=== PATIENT | male | born 1940 | race Caucasian/White ===

== ENCOUNTER 2017-07-07 09:03 | Outpatient (CLI) | payer MEDICARE, BC ==
[~2017-07-07 09:03] MED LIST: ASPI-495 PO; DONE5TAB34 PO; GLIP5TAB13 PO; HYDROCODONE PO; LORA1TAB PO; OXYC20TA42 PO; PREG300C PO; TAMS0.4C34 PO; TOPI25CA PO; WARF1TAB86 PO
== END 2017-07-07 23:59 | disposition home or self-care (01) ==
LOC: US 09:03
PROVIDERS: ATTEND Internal Medicine Interventional Cardiology
DX: I71.4 Abdominal aortic aneurysm, without rupture (principal)
CPT/HCPCS: 76770-TC

== ENCOUNTER 2017-10-25 04:14 | Inpatient (IN) | payer MEDICARE, BC ==
[~2017-10-25] VITALS: Ht 182.9 cm; Wt 103.4 kg
--- NOTE | 2017-10-25 04:30 | NUR ---
PT BIBRA FROM HOME FOR MECHANICAL GLF GETTING OUT OF BED, WITNESSED FALL AND STATES PT HIT HIS HEAD ON THE NIGHT STAND. PT AOX3 RR EVEN AND UNLABORED. NO SOB NOTED. HOWEVER PT 02 RA 81%, PLACED ON NC 4LMP WITH 02 SAT 92%. PT NOTED WITH LOW BP. DR MCKEON MADE AWARE. PT PLACED ON MONITOR AND GOWNED. DR. MCKEON AT BEDSIDE.
--- NOTE | 2017-10-25 04:31 | NUR ---
Rah shaw in [facility] - 10/25/17 at 0642 by CHRIS PER RA PLACED HARD CERVICAL COLLAR.
--- NOTE | 2017-10-25 04:31 | NUR ---
PT WITH PERSONAL HARD CERVICAL COLLAR D/T RECENT NECK SURGERY
--- NOTE | 2017-10-25 04:53 | NUR ---
RADIOLOGY AT BEDSIDE FOR CXR
[2017-10-25] MEDS ORDERED: IV NS 0.9% 1,000 ML BAG IV ONE (05:00)
--- NOTE | 2017-10-25 05:00 | NUR ---
PT TO CT. ACCOMPANIED BY MONICA BAUMAN
[2017-10-25 05:06] LABS: BASOPHILS % (AUTO) 0.2 % (0.0-2.0); EOSINOPHILS % (AUTO) 0.1 % (0.0-6.0); HEMATOCRIT 40 % (39-51); HEMOGLOBIN 13.4 g/dL (13.5-17.5); LYMPHOCYTES # (AUTO) 0.3 /CMM (0.8-4.8); LYMPHOCYTES % (AUTO) 2.7 % (20.0-44.0); MEAN CORPUSCULAR HEMOGLOBIN 32 PG (26.0-33.0); MEAN CORPUSCULAR HGB CONC 33 g/dl (31.0-36.0); MEAN CORPUSCULAR VOLUME 97 fL (80-96); MONOCYTES % (AUTO) 7.6 % (2.0-12.0); NEUTROPHILS # (AUTO) 11.3 /CMM (1.8-8.9); NEUTROPHILS % (AUTO) 89.4 % (43.0-81.0); PLATELET COUNT (AUTO) 139 /CMM (150-450); RDW COEFFICIENT OF VARIATION 15.9 (11.5-15.0); RED BLOOD CELL COUNT(AUTO) 4.17 MIL/uL (4.5-6.0); WHITE BLOOD COUNT (AUTO) 12.6 K/uL (4.3-11.0)
[2017-10-25 05:08] LABS: INR 1.6 (0.87-1.13)
[2017-10-25 05:12] LABS: ALANINE AMINOTRANSFERASE 30 U/L (12-78); ALBUMIN 3.5 g/dL (3.4-5.0); ALKALINE PHOSPHATASE 135 U/L (46-116); ASPARTATE AMINOTRANSFERASE 17 U/L (15-37); BILIRUBIN,DIRECT 0.1 mg/dL (0.0-0.2); BILIRUBIN,TOTAL 0.3 mg/dL (0.2-1.0); CALCIUM, SERUM 9.3 mg/dL (8.5-10.1); CARBON DIOXIDE 26 mmol/L (21-32); CHLORIDE 104 mmol/L (98-107); CREATININE 1.6 mg/dL (0.6-1.3); GLUCOSE 180 mg/dL (74-106); POTASSIUM 4.8 mmol/L (3.5-5.1); SODIUM SERUM 139 mmol/L (136-145); TOTAL PROTEIN, SERUM 6.8 g/dL (6.4-8.2); UREA NITROGEN, BLOOD 45 mg/dL (7-18)
[2017-10-25 05:20] LABS: THYROID STIMULATING HORMONE 0.253 uIU/mL (0.358-3.74)
--- NOTE | 2017-10-25 05:23 | NUR ---
PT RETURNED FROM CT.
[2017-10-25 05:35] LABS: TROPONIN I 0.042 ng/mL (0.00-0.056)
--- NOTE | 2017-10-25 06:27 | NUR ---
DR. MCKEON AT BEDSIDE SPEAKING TO PT/ REGARDING POC AND RESULTS.
[2017-10-25] MEDS ORDERED: FUROSEMIDE 20 MG/2 ML VIAL IV ONE (07:00)
[2017-10-25] MEDS ORDERED: NITROGLYCERIN PACKET 1 GM PACKET TD ONE (07:00)
--- NOTE | 2017-10-25 07:01 | NUR ---
REPORT GIVEN TO MONICA ADKINS FOR JONNY.
[2017-10-25] MEDS ORDERED: FUROSEMIDE 20 MG/2 ML VIAL ONE (07:03)
[2017-10-25] MEDS ORDERED: NITROGLYCERIN PACKET 1 GM PACKET ONE (07:03)
--- NOTE | 2017-10-25 07:07 | NUR ---
PER DR. XIONG TO HOLD NITRO PATCH D/T BP 95/60
[2017-10-25] MEDS ORDERED: ROPI0.5T GT (07:25)
[2017-10-25] MEDS ORDERED: CARV3.122 PO (07:25)
[2017-10-25] MEDS ORDERED: OXYB5TAB11 PO (07:25)
[2017-10-25] MEDS ORDERED: TRAM50TA2 PO (07:25)
[2017-10-25] MEDS ORDERED: CYCL30DR EACHEYE (07:25)
[2017-10-25] MEDS ORDERED: MEMA5TAB PO (07:25)
[2017-10-25] MEDS ORDERED: CITA20TA16 PO (07:25)
[2017-10-25] MEDS ORDERED: NORT25CA PO (07:25)
[2017-10-25] MEDS ORDERED: HYDR-548 PO (07:25)
[2017-10-25] MEDS ORDERED: CELE200C PO (07:25)
[2017-10-25] MEDS ORDERED: LOSA50TA21 PO (07:25)
--- NOTE | 2017-10-25 08:43 | NUR ---
report given to reva wiggins for shahnaz
[2017-10-25 09:00] VITALS: BP 91/55
--- NOTE | 2017-10-25 09:00 | NUR ---
MS RN NOTES ADMITTED PATIENT FROM ER VIA GURNEY ACCOMPANIED BY . REPORT GIVEN BY LUCILLE. NO ACUTE DISTRESS NOTED. BREATHING UNLABORED. DENIED ANY PAIN AT THIS TIME. ALERT ORIENTED X4. IV ACCESS PATENT AND INTACT. ORIENTED TO THE ROOM. SAFETY MEASURES IN PLACE. CALL LIGHT WITHIN REACH. WILL CONTINUE TO MONITOR ACCORDINGLY.
[2017-10-25] MEDS ORDERED: ONDANSETRON HCL/PF 4 MG/2 ML VIAL IV PRN (12:30)
[2017-10-25] MEDS ORDERED: DEXTROSE 50%-WATER 50 ML DISP.SYRIN IV PRN (12:30)
--- NOTE | 2017-10-25 12:45 | NUR ---
RN NOTES SEEN AND EVALUATED BY DR NIKITA RICARDO WITH NEW ORDERS MADE. NOTED AND CARRIED OUT.
[2017-10-25 13:00] VITALS: BP 95/48
[2017-10-25 16:00] VITALS: BP 133/70
[2017-10-25] MEDS ORDERED: CARVEDILOL 3.125 MG TABLET PO SCH (17:00)
[2017-10-25] MEDS ORDERED: Medication Not On Formulary EA (Cyclosporine (Restasis) 1 DROP) EACHEYE SCH (17:00)
[2017-10-25] MEDS: MEMANTINE HCL 5 MG TABLET PO SCH (17:43)
[2017-10-25] MEDS: ropiniROLE 0.5 MG TABLET GT SCH (17:43)
[2017-10-25] MEDS: BLOOD SUGAR DIAGNOSTIC 1 EACH STRIP IN SCH ×2 (17:43→21:50)
--- NOTE | 2017-10-25 18:20 | NUR ---
RN NOTES CALLED PHARMACIST FOLLOW UP PAMELOR , NOT AVAILABLE AT THE FLOOR YET.
[2017-10-25] MEDS: WARFARIN SODIUM 1 MG TABLET PO SCH (18:32)
[2017-10-25] MEDS: HYDROCODONE/APAP 10/325MG 1 EA TABLET PO PRN (18:34)
--- NOTE | 2017-10-25 18:40 | NUR ---
RN NOTES CALLED PHARMACIST AND FOLLOWED UP PAMELOR, MEDICATION NOT AVAILABLE ON THE FLOOR YET.
[2017-10-25] MEDS: NORTRIPTYLINE HCL 25 MG CAPSULE PO SCH (18:59)
--- NOTE | 2017-10-25 19:00 | NUR ---
MS RN NOTES PATIENT IN BED ,ALERT ORIENTED X4. NO ACUTE DISTRESS NOTED. BREATHING UNLABORED. IV ACCESS PATENT AND INTACT.NEEDS ATTENDED AND ANTICIPATED. DUE MEDICATIONS GIVEN, NO ASE NOTED. FOLLOWED UP MEDICATION PAMELOR STILL NOT AVAILABLE AT THIS TIME SPOKE WITH PHARMACIST RAMIREZ. NEEDS ATTENDED AND ANTICIPATED. SAFETY MEASURES IN PLACE. CALL LIGHT WITHIN REACH. ENDORSED TO NIGHT NURSE FOR CONTINUITY OF CARE.
--- NOTE | 2017-10-25 19:35 | NUR ---
MS RN INITIAL NOTE PT IS IN BED AWAKE AND ALERT, ABLE TO MAKE NEEDS KNOWN. NO SIGNS OF SOB OR DISTRESS, BREATHING EVENLY AND UNLABORED. DENIES PAIN AT THIS TIME. URINE NEEDED, PT AWARE. BED IS IN LOW AND LOCKED POSITION, CALL LIGHT WITHIN REACH. WILL CONTINUE TO MONITOR PT
[2017-10-25 20:00] VITALS: BP 138/74
--- NOTE | 2017-10-25 21:41 | NUR ---
RN NOTE REPORT GIVEN TO NOAM FOR JONNY
--- NOTE | 2017-10-25 21:41 | NUR ---
RECEIVED REPORT FROM AMBROCIO PT IS IN BED AWAKE AND ALERTX 4 ,NO SIGNS OF SOB OR DISTRESS, BREATHING EVENLY AND UNLABORED. PT STATED HE HAD PAIN IN HIS NECK 3/10, LAST PAIN MED WAS GIVEN 3HR AGO.WILL REASSESS IN AN HOUR. BS 123, NO COVERAGE NEEDED . BED IS IN LOW AND LOCKED POSITION, CALL LIGHT WITHIN REACH. WILL CONTINUE TO MONITOR .
[2017-10-25 22:26] LABS: APPEARANCE,URINE CLEAR (CLEAR); BILIRUBIN,URINE NEGATIVE (NEGATIVE); BLOOD, URINE NEGATIVE Ery/uL (NEGATIVE); COLOR,URINE YELLOW (YELLOW); KETONES,URINE NEGATIVE (NEGATIVE); LEUKOCYTE ESTERASE ,URINE NEGATIVE (NEGATIVE); NITRITE, URINE NEGATIVE (NEGATIVE); PROTEIN,URINE NEGATIVE (NEGATIVE); UGLUCOSE NEGATIVE (NEGATIVE)
[2017-10-25 22:41] LABS: BACTERIA,URINE None seen /HPF (None Seen); MUCUS,URINE Rare /LPF (None Seen); RBC,URINE 0-2 /HPF (0-2); SQUAMOUS EPITHELIAL CELL,UR 0-2 /HPF (None Seen); WBC,URINE 0-2 /HPF (0-3)
[2017-10-26] VITALS: BP 133/73
--- NOTE | 2017-10-26 00:29 | NUR ---
PT REFUSED VS AT 0400 AND ASKED NOT TO BEDER HIM AT THAT TIME Addendum: 10/26/17 at 0032 by NOAM MCCAULEY RN IVIS
[2017-10-26 00:30] VITALS: BP 133/73
[2017-10-26 06:05] VITALS: BP 147/86
--- NOTE | 2017-10-26 07:12 | NUR ---
ENGINEERING PRODUCTION WORKER CLOSING NOTES PT IS IN BED AWAKE AND ALERT X 4 ,NO SIGNS OF SOB OR DISTRESS, BREATHING EVENLY AND UNLABORED. NO PAIN AT THIS TIME. BS 119, NO COVERAGE NEEDED, SR WITH HR 78 . BED IS IN LOW AND LOCKED POSITION, CALL LIGHT WITHIN REACH. WILL ENDORSE TO DAY SHIFT FOR JONNY. .
--- NOTE | 2017-10-26 07:30 | NUR ---
VALIDATION CONSULTANT NOTES RECEIVED PATIENT IN STABLE CONDITION. IN NO APPARENT DISTRESS. BEDSIDE RAILS ARE UPX2. BED IS LOCKED AND LOWERED. CALL LIGHT IS WITHIN REACH. IV LINE IS INTACT AND PATENT. WILL CONTINUE TO MONITOR.
[2017-10-26] MEDS: BLOOD SUGAR DIAGNOSTIC 1 EACH STRIP IN SCH ×4 (07:37→22:07)
[2017-10-26 08:00] VITALS: BP 121/74
[2017-10-26] MEDS: CITALOPRAM HYDROBROMIDE 20 MG TABLET PO SCH (08:49)
[2017-10-26] MEDS: FUROSEMIDE 40 MG/4 ML VIAL IV SCH ×3 (08:49→16:41)
[2017-10-26] MEDS: DONEPEZIL 5 MG TABLET PO SCH (08:49)
[2017-10-26] MEDS: MEMANTINE HCL 5 MG TABLET PO SCH ×2 (08:49→16:41)
[2017-10-26] MEDS ORDERED: LOSARTAN POTASSIUM 50 MG TABLET PO SCH (09:00)
--- NOTE | 2017-10-26 10:42 | NUR ---
Dr. Trudy Brumfield requested social media strategist consult for this 77 year old Male who was admitted for hypertensive heart disease with heart failure and acute kidney failure, unspecified. Per the patient, he was trying to get out of bed this AM and required help from his who noticed that his hands were trembling and that he was confused. Patient is alert and oriented to person, place, time, and situation. He was in a good mood and was pleasant during the interview. He states that he lives at home with his and has been to her for 52 years. He receives SSI ($1300/month). Patient noted that his wants information pertaining to [employer] Directive/DPOA/and POLST. SW provided this paperwork to him. He stated that he would rather take the POLST form to his own primary care doctor rather than have a doctor fill it out at the hospital. SW called the patient's Marcia Bunch ([phone]) and appreciated the SW providing this paperwork to the patient. She notes there are no other needs at this time. HANNY followed up with the patient's nurse Lavell ANDERSON and informed him that the paperwork was provided to the patient.
--- NOTE | 2017-10-26 11:59 | NUR ---
SCANNER NOT WORKING. CHECKED PATIENTS BLOOD SUGAR. BLOOD SUGAR WAS 122.
[2017-10-26 16:00] VITALS: BP 151/88
[2017-10-26] MEDS: WARFARIN SODIUM 1 MG TABLET PO SCH (16:54)
--- NOTE | 2017-10-26 17:00 | NUR ---
OK TO ADMINISTER COUMADIN PER 10/25/17 INR VALUE
--- NOTE | 2017-10-26 17:01 | NUR ---
PATIENTS BLOOD SUGAR 153. PATIENT REFUSED INSULIN SLIDING SCALE. STATES THAT HE DOESN'T TAKE INSULIN AT HOME.
[2017-10-26] MEDS: NORTRIPTYLINE HCL 25 MG CAPSULE PO SCH (17:36)
[2017-10-26] MEDS: ropiniROLE 0.5 MG TABLET GT SCH (17:36)
[2017-10-26] MEDS: HYDROCODONE/APAP 10/325MG 1 EA TABLET PO PRN ×2 (17:41→22:41)
--- NOTE | 2017-10-26 18:30 | NUR ---
DATA ANALYST CLOSING NOTES PATIENT IS IN STABLE CONDITION. IN NO APPARENT DISTRESS. BEDSIDE RAILS ARE UPX2. BED IS LOCKED AND LOWERED. CALL LIGHT IS WITHIN REACH. IV LINE IS INTACT AND PATENT. WILL ENDORSE CARE TO MUSEUM LIBRARIAN NURSE FOR JONNY.
--- NOTE | 2017-10-26 19:10 | NUR ---
RN INITIAL NOTES: PATIENT RECEIVED IN BED, ALERT, ORIENTED X 4. NOT IN ANY DISTRESS. NO COMPLAINTS OF PAIN OR DISCOMFORT. PATIENT NOT WEARING NECK COLLAR OF THIS TIME. CALL LIGHT WITHIN REACH. BED IN LOW LOCKED POSITION. WILL CONTINUE TO MONITOR
[2017-10-26 20:00] VITALS: BP 143/89
[2017-10-26] MEDS: CLOTRIMAZOLE 1% 15 GM TUBE TP SCH (20:13)
[2017-10-26] MEDS: INSULIN REGULAR, HUMAN 100 UNIT/ML 3 ML VIAL SQ PRN (22:12)
--- NOTE | 2017-10-26 22:14 | NUR ---
RN NOTES: BSL IS 155. PATIENT REFUSED INSULIN. STATED THAT HE DOES NOT TAKE INSULIN AT HOME
[2017-10-27] VITALS: BP 135/74
[2017-10-27 04:00] VITALS: BP 142/85
[2017-10-27] MEDS: HYDROCODONE/APAP 10/325MG 1 EA TABLET PO PRN ×3 (04:24→17:54)
--- NOTE | 2017-10-27 06:35 | NUR ---
RN NOTES: PATIENT REFUSED TO HAVE HIS BLOOD SUGAR CHECKED.
[2017-10-27] MEDS: BLOOD SUGAR DIAGNOSTIC 1 EACH STRIP IN SCH ×4 (06:36→21:18)
--- NOTE | 2017-10-27 06:55 | NUR ---
RN CLOSING NOTES: PATIENT SLEEPING IN BED, BUT EASILY AROUSABLE. ALERT, ORIENTED X 4. NO COMPLAINTS OF PAIN OR DISCOMFORT OF THIS TIME. IV SITE G18 ON RIGHT HAND INTACT. PATIENT REMAINS STABLE. CALL PARSONS WITHIN PATIENT'S REACH. BED IN LOW LOCKED POSITION. ALL NEEDS ATTENDED TO. ALL DUE MEDICATIONS GIVEN ORDERED. WILL ENDORSE JONNY TO MORNING SHIFT RN
--- NOTE | 2017-10-27 07:49 | NUR ---
MS RN OPENING NOTES RECEIVED PT FROM NIGHTSHIFT NURSE IN STABLE CONDITION. PT IS A/O X4. HE DENIES ANY SOB OR PAIN. BREATHING IS EVEN AND UNLABORED. IV TO RIGHT HAND NOTED TO BE PATENT AND INTACT. NO REDNESS OR SIGNS OF INFILTRATION NOTED. BED IN LOW LOCKED POSITION, SIDE RAILS UP X2, CALL LIGHT WITHIN REACH. WILL CONTINUE TO MONITOR.
[2017-10-27 08:00] VITALS: BP 174/103
--- NOTE | 2017-10-27 08:05 | NUR ---
MS RN NOTES: AM LAB PT REFUSED AM LABS. PER PT, "I DON'T WANT TO BE POKED AGAIN AND DON'T NEED THIS". PT SPOKEN TO BY CHARGE NURSE HOWEVER HE IS PERSISTENT IN HIS STANCE
[2017-10-27] MEDS: FUROSEMIDE 40 MG/4 ML VIAL IV SCH (09:00)
[2017-10-27] MEDS: DONEPEZIL 5 MG TABLET PO SCH (09:13)
[2017-10-27] MEDS: ACETAMINOPHEN 325 MG TABLET PO PRN ×2 (09:13→17:53)
[2017-10-27] MEDS: MEMANTINE HCL 5 MG TABLET PO SCH ×2 (09:14→17:54)
[2017-10-27] MEDS: CITALOPRAM HYDROBROMIDE 20 MG TABLET PO SCH (09:14)
[2017-10-27] MEDS: CLOTRIMAZOLE 1% 15 GM TUBE TP SCH ×2 (09:17→20:40)
--- NOTE | 2017-10-27 09:20 | NUR ---
MS RN NOTES: 0900 MEDICATION ADMINISTRATION PT REFUSED 0900 LASIX ADMINISTRATION. PER PT" I'VE BEEN PEEING ALL LIGHT AND I'M TIRED OF IT. I DON'T WANT IT". PT EDUCATED ON THE RISKS AND BENEFITS
[2017-10-27 15:30] LABS: BASOPHILS % (AUTO) 0.1 % (0.0-2.0); EOSINOPHILS % (AUTO) 0.4 % (0.0-6.0); HEMATOCRIT 41 % (39-51); HEMOGLOBIN 13.7 g/dL (13.5-17.5); LYMPHOCYTES # (AUTO) 0.5 /CMM (0.8-4.8); LYMPHOCYTES % (AUTO) 7.2 % (20.0-44.0); MEAN CORPUSCULAR HEMOGLOBIN 32 PG (26.0-33.0); MEAN CORPUSCULAR HGB CONC 33 g/dl (31.0-36.0); MEAN CORPUSCULAR VOLUME 97 fL (80-96); MONOCYTES # (AUTO) 0.5 /CMM (0.1-1.30); MONOCYTES % (AUTO) 7.2 % (2.0-12.0); NEUTROPHILS # (AUTO) 6.3 /CMM (1.8-8.9); NEUTROPHILS % (AUTO) 85.1 % (43.0-81.0); PLATELET COUNT (AUTO) 154 /CMM (150-450); RDW COEFFICIENT OF VARIATION 15.2 (11.5-15.0); RED BLOOD CELL COUNT(AUTO) 4.22 MIL/uL (4.5-6.0); WHITE BLOOD COUNT (AUTO) 7.4 K/uL (4.3-11.0)
[2017-10-27 15:50] LABS: INR 2.04 (0.87-1.13)
[2017-10-27 16:00] VITALS: BP 180/88
[2017-10-27 16:28] LABS: ALANINE AMINOTRANSFERASE 27 U/L (12-78); ALBUMIN 3.3 g/dL (3.4-5.0); ALKALINE PHOSPHATASE 126 U/L (46-116); ASPARTATE AMINOTRANSFERASE 23 U/L (15-37); BILIRUBIN,TOTAL 0.6 mg/dL (0.2-1.0); CALCIUM, SERUM 9.2 mg/dL (8.5-10.1); CARBON DIOXIDE 28 mmol/L (21-32); CHLORIDE 101 mmol/L (98-107); GLUCOSE 156 mg/dL (74-106); PHOSPHORUS 2.7 mg/dL (2.5-4.9); POTASSIUM 4.5 mmol/L (3.5-5.1); SODIUM SERUM 135 mmol/L (136-145); UREA NITROGEN, BLOOD 25 mg/dL (7-18)
--- NOTE | 2017-10-27 17:20 | NUR ---
MS RN NOTES: 1200 BS PT REFUSED 1200 INSULIN ADMINISTRATION. EDUCATION PROVIDED OF RISKS AND BENEFITS. WILL CONTINUE TO MONITOR FOR SYMPTOMS OF HYPO/HYPERGLYCEMIA
--- NOTE | 2017-10-27 17:21 | NUR ---
MS RN NOTES: BP AND TEMP MANAGEMENT PT'S 1600 BP WAS 180/88 AND HAD A TEMP OF 99.8. DR RICARDO MADE AWARE AND GAVE A TELEPHONE ORDER FOR HYDRALAZINE 50MG PO Q6HR PRN FOR SBP >160 AND DBP >100. SHE ALSO GAVE FURTHER ORDERS TO OBTAIN A UA. WILL CARRY OUT ORDERS
[2017-10-27] MEDS ORDERED: hydrALAZINE HCL 25 MG TABLET PO PRN (17:30)
[2017-10-27] MEDS: ropiniROLE 0.5 MG TABLET GT SCH (17:54)
[2017-10-27] MEDS: NORTRIPTYLINE HCL 25 MG CAPSULE PO SCH (17:55)
[2017-10-27] MEDS: WARFARIN SODIUM 1 MG TABLET PO SCH (18:01)
--- NOTE | 2017-10-27 18:33 | NUR ---
MS RN NOTES: BP AND TEMP RECHECK AFTER MEDICAL MANAGEMENT AND COOLING INTERVENTIONS, PT'S BP IS NOW 148/97 AND HAS A TAMP OF 98.8
--- NOTE | 2017-10-27 18:45 | NUR ---
MS RN CLOSING NOTES PT REMAINS STABLE . NAUSEA HAS CEASED. HE DENIES ANY PAIN AT THIS TIME. ALL NEEDS WERE ANTICIPATED FOR AND MET. ALL DUE MEDS WERE GIVEN. VITALS STABLE AT THIS TIME. SAFETY MEASURES REMAIN IN PLACE. WILL ENDORSE TO NIGHTSHIFT NURSE FOR JONNY
[2017-10-27 20:00] VITALS: BP 127/69
--- NOTE | 2017-10-27 20:15 | NUR ---
MS RN NOTES: SPOKE WITH CARROLL FROM PHARMACY IN REGARDS TO LYRICA DOSE. HE WILL ADJUST FOR SAFER DOSAGE.
--- NOTE | 2017-10-27 20:19 | NUR ---
MS RN NOTES: SPOKE WITH DR. NIKITA RICARDO AND INFORMED HER THAT IS AT BEDSIDE AND CONCERNED ABOUT MEDICATIONS THAT WAS NOT PUT ON THE LIST. LYRICA 400MG TWICE A DAY AND BACLOFEN 10MG 1X A DAY AND NORCO 10-[address] RICARDO SAID OK TO START TONIGHT.
[2017-10-27] MEDS: PREGABALIN 100 MG CAPSULE PO SCH (20:30)
[2017-10-27] MEDS ORDERED: BACLOFEN (10 MG) 10 MG TABLET PO SCH (20:30)
--- NOTE | 2017-10-27 20:37 | NUR ---
MS RN NOTES: PT REFUSING TO GIVE HIS PILLBOX TO ME. EXPLAINED TO PT RISKS AND BENEFITS OF HAVING IT AT BEDSIDE. PT KEEPS SAYING THAT HE DOES NOT WANT TO HAND IT OVER ALTHOUGH IF WE WERE TO COLLECT THEM, HE WOULD GET THEM BACK. PT STILL REFUSING. HE AGREED THAT HE WOULD NOT TAKE ANY MEDS FROM THE PILLBOX.
--- NOTE | 2017-10-27 20:42 | NUR ---
MS RN NOTES: PT WANTS TO TAKE LYRICA DOSE STARTING TOMORROW.
[2017-10-27] MEDS: CARVEDILOL 3.125 MG TABLET PO SCH (20:44)
--- NOTE | 2017-10-27 21:12 | NUR ---
MS RN NOTES: CHARGE NURSE MADE AWARE THAT PT WILL NOT GIVE UP MEDICATIONS AND HAVE THEM SENT TO PHARMACY. PT AGREED THAT WE WILL SEAL THEM IN A CONTAINER AND PUT THEM IN HIS BLACK BAG AWAY FROM REACH. PT AGREED. CHARGE NURSE AWARE. IS TO TAKE THEM HOME TOMORROW WHEN SHE VISITS.
--- NOTE | 2017-10-27 21:18 | NUR ---
MS RN NOTES: PT REFUSING TO HAVE HIS BLOOD SUGAR CHECKED. EXPLAINED TO PT RISKS AND BENEFITS OF HAVING HIS BLOOD SUGAR CHECKED X 3. PT STILL REFUSED. PT SAID THAT HE HAS NOT GOT HIS BLOOD SUGAR CHECKED FOR 8-9 YEARS AND HE DOES NOT WANT TO BE CHECKED.
[2017-10-27] MEDS ORDERED: HYDROCODONE/APAP 10/325MG 1 EA TABLET PO PRN (22:00)
--- NOTE | 2017-10-28 04:49 | NUR ---
MS RN NOTES: PT REFUSING AM HYGIENE CARE. PT SAYING THAT HE HAD A BED BATH YESTERDAY.
[2017-10-28] MEDS: BLOOD SUGAR DIAGNOSTIC 1 EACH STRIP IN SCH ×2 (06:30→12:00)
[2017-10-28] MEDS: INSULIN REGULAR, HUMAN 100 UNIT/ML 3 ML VIAL SQ PRN (06:32)
--- NOTE | 2017-10-28 06:37 | NUR ---
MS RN NOTES: BLOOD SUGAR THIS AM WAS 111. NO INSULIN WAS ADMINISTERED. ENCOURAGE PT TO EAT AND DRINK MORE.
--- NOTE | 2017-10-28 06:46 | NUR ---
MS RN NOTES: URINE SPECIMEN COLLECTED AND PUT IN FRIDGE. LAB MADE KNOWN.
--- NOTE | 2017-10-28 07:29 | NUR ---
MS RN CLOSING NOTES: ALL NEEDS WERE ATTENDED AND ANTICIPATED FOR. PT AWAKE AT THIS TIME AND WATCHING TELEVISION. PT ON ROOM AIR. NO SOB NOTED. NO S/S OF DISTRESS. BED ALARM ACTIVATED. CALL LIGHT WITHIN PT'S REACH. BED KEPT IN LOW, LOCKED POSITION, AND SIDE RAILS X 2UP. ENDORSED TO AM NURSE FOR JONNY.
--- NOTE | 2017-10-28 07:30 | NUR ---
RN MS NOTES PT IN BED, AWAKE, ALERT AND ORIENTED, NO COMPLAINT OF PAIN, RESPIRATIONS NORMAL, CALL LIGHT WITHIN REACH, KEPT COMFORTABLE.
[2017-10-28 08:01] LABS: APPEARANCE,URINE CLEAR (CLEAR); BILIRUBIN,URINE 1+ (NEGATIVE); BLOOD, URINE NEGATIVE Ery/uL (NEGATIVE); COLOR,URINE AMBER (YELLOW); KETONES,URINE NEGATIVE (NEGATIVE); LEUKOCYTE ESTERASE ,URINE NEGATIVE (NEGATIVE); NITRITE, URINE NEGATIVE (NEGATIVE); PROTEIN,URINE NEGATIVE (NEGATIVE); UGLUCOSE NEGATIVE (NEGATIVE)
[2017-10-28 08:32] VITALS: BP 148/82
[2017-10-28] MEDS: FUROSEMIDE 40 MG/4 ML VIAL IV SCH ×2 (08:36→09:00)
[2017-10-28 08:37] VITALS: BP 148/82
[2017-10-28] MEDS: DONEPEZIL 5 MG TABLET PO SCH (08:37)
[2017-10-28] MEDS: CITALOPRAM HYDROBROMIDE 20 MG TABLET PO SCH (08:37)
[2017-10-28] MEDS: CARVEDILOL 3.125 MG TABLET PO SCH (08:37)
[2017-10-28] MEDS: MEMANTINE HCL 5 MG TABLET PO SCH (08:37)
[2017-10-28] MEDS ORDERED: LOSARTAN POTASSIUM 50 MG TABLET PO SCH (09:00)
[2017-10-28] MEDS: PREGABALIN 100 MG CAPSULE PO SCH (09:11)
[2017-10-28] MEDS: CLOTRIMAZOLE 1% 15 GM TUBE TP SCH (09:15)
--- NOTE | 2017-10-28 13:00 | NUR ---
RN MS NOTES PT IN BED, DENIES PAIN, NOT IN DISTRESS, STATED THAT HE IS FEELING OK AND WANTS TO GO HOME, PT SEEN BY DR RICARDO, DISCHARGE ORDERS GIVEN, DISCHARGE AND MEDICATION INSTRUCTIONS PROVIDED TO PT AND , VERBALIZED UNDERSTANDING, NEW PRESCRIPTION GIVEN TO PT, SKIN ASSESSMENT DONE, BELONGINGS ACCOUNTED FOR, ASSISTED TO HOSPITAL LOBBY BY CRULLER MAKER MACHINE, LEFT WITH IN STABLE CONDITION.
== END 2017-10-28 13:00 | disposition home or self-care (01) | DRG 291 ==
LOC: ER 04:16 → TELE 08:37 → MED 10-27 20:30
PROVIDERS: ADMIT Internal Medicine Nephrology; ATTEND Internal Medicine Nephrology
DX: I13.0 Hypertensive heart and chronic kidney disease with heart failure and stage 1 through stage 4 chronic kidney disease, or unspecified chronic kidney disease (principal); G93.40 Encephalopathy, unspecified; I50.33 Acute on chronic diastolic (congestive) heart failure; N17.9 Acute kidney failure, unspecified; E11.22 Type 2 diabetes mellitus with diabetic chronic kidney disease; N18.9 Chronic kidney disease, unspecified; I25.10 Atherosclerotic heart disease of native coronary artery without angina pectoris; D72.829 Elevated white blood cell count, unspecified; F03.90 Unspecified dementia, unspecified severity, without behavioral disturbance, psychotic disturbance, mood disturbance, and anxiety; Z66 Do not resuscitate; Z87.891 Personal history of nicotine dependence; Z86.718 Personal history of other venous thrombosis and embolism; Z79.84 Long term (current) use of oral hypoglycemic drugs; Z96.642 Presence of left artificial hip joint; Z95.1 Presence of aortocoronary bypass graft; R53.1 Weakness; Z98.890 Other specified postprocedural states; L98.8 Other specified disorders of the skin and subcutaneous tissue; S01.00XA Unspecified open wound of scalp, initial encounter; X58.XXXA Exposure to other specified factors, initial encounter; Y93.9 Activity, unspecified; Y92.009 Unspecified place in unspecified non-institutional (private) residence as the place of occurrence of the external cause
CPT/HCPCS: 36415; 70450-TC; 71045-TC; 72125-TC; 74018; 80048-TC; 80053-TC; 80076-TC; 81000-TC; 82140-TC; 82962-TC; 83735-TC; 84100-TC; 84443-TC; 84484-TC; 85025-TC; 85378-TC; 85610-TC; 85730-TC; 87081-TC; 93307-TC; A4606; J1815; J1940; J2405; J7030; L0172; Z7610

== ENCOUNTER 2017-11-25 14:05 | Emergency (ER) | payer MEDICARE, BC ==
[~2017-11-25] VITALS: Ht 182.9 cm; Wt 106.6 kg
[~2017-11-25 14:05] MED LIST changes: -ASPI-495 PO; +CARV3.122 PO; +CELE200C PO; +CITA20TA16 PO; +CYCL30DR EACHEYE; -GLIP5TAB13 PO; +HYDR-548 PO; -HYDROCODONE PO; -LORA1TAB PO; +LOSA50TA21 PO; +MEMA5TAB PO; +NORT25CA PO; -OXYC20TA42 PO; -PREG300C PO; +ROPI0.5T GT; -TAMS0.4C34 PO; -TOPI25CA PO
--- NOTE | 2017-11-25 14:20 | NUR ---
ASSISTED TO ER BED 2 FOR EVAL AND TREATMENT OF LEFT KNEE PAIN, ABLE TO GET UP FROM W/C AND TRANSFER TO BED WITH MINIMAL ASSISTANCE. TOLERATED WELL, PILLOW FOR COMFORT.
--- NOTE | 2017-11-25 14:34 | NUR ---
BIB , PT C/O WORSENING LEFT KNEE PAIN SINCE HE HAD A GLF 2 WEEKS AGO. PT SEEN & EVAL'D BY DR. MACIAS. AAOX3, VSS, DENIES CP, SOB, DIZZINESS, N/V NAD @ THIS TIME.
--- NOTE | 2017-11-25 15:49 | NUR ---
Patient discharged to home in stable condition. Written and verbal after care instructions given. Patient verbalizes understanding of instruction. APPLIED MARLINE BANDAGE ON LT KNEE, PT FREDI WELL WITH GOOD CMS. PT AMBULATED WITH DR. COLLEEN TONEY WITNESSED IT & OK'D TO DC PT.
[2017-11-25 15:51] VITALS: BP 115/70
== END 2017-11-25 15:53 | disposition home or self-care (01) ==
LOC: ER 14:08
DX: M25.462 Effusion, left knee (principal); I25.10 Atherosclerotic heart disease of native coronary artery without angina pectoris; I10 Essential (primary) hypertension; Z86.711 Personal history of pulmonary embolism; E11.40 Type 2 diabetes mellitus with diabetic neuropathy, unspecified; Z95.1 Presence of aortocoronary bypass graft; Z79.01 Long term (current) use of anticoagulants
CPT/HCPCS: 73564; 99284; A4606; Z7610

== ENCOUNTER 2018-05-06 11:15 | Outpatient (CLI) | payer MEDICARE, BC ==
[~2018-05-06 11:15] MED LIST changes: +HYDR-4354 PO; -HYDR-548 PO; -LOSA50TA21 PO; +LOSA50TA39 PO
== END 2018-05-06 23:59 | disposition home health service (06) ==
LOC: WOU 11:15
PROVIDERS: ATTEND Podiatrist Foot & Ankle Surgery
DX: I87.312 Chronic venous hypertension (idiopathic) with ulcer of left lower extremity (principal); L97.822 Non-pressure chronic ulcer of other part of left lower leg with fat layer exposed; I87.2 Venous insufficiency (chronic) (peripheral); Z96.642 Presence of left artificial hip joint; Z79.01 Long term (current) use of anticoagulants
CPT/HCPCS: 11042; A6402; Z7610

== ENCOUNTER 2018-05-07 16:00 | Outpatient (CLI) | payer MEDICARE, BC | END 2018-05-07 23:59 | disposition home or self-care (01) | LOC: WOU 16:00 | PROVIDERS: ATTEND Podiatrist Foot & Ankle Surgery | DX: I87.2 Venous insufficiency (chronic) (peripheral) (principal); L97.829 Non-pressure chronic ulcer of other part of left lower leg with unspecified severity; I70.201 Unspecified atherosclerosis of native arteries of extremities, right leg | CPT/HCPCS: 93925; 93970; A6402; Z7610 ==

== ENCOUNTER 2018-05-13 09:00 | Outpatient (CLI) | payer MEDICARE, BC | END 2018-05-13 23:59 | disposition home health service (06) | LOC: WOU 09:00 | PROVIDERS: ATTEND Podiatrist Foot & Ankle Surgery | DX: I87.312 Chronic venous hypertension (idiopathic) with ulcer of left lower extremity (principal); L97.822 Non-pressure chronic ulcer of other part of left lower leg with fat layer exposed; I73.9 Peripheral vascular disease, unspecified; I87.2 Venous insufficiency (chronic) (peripheral); Z96.642 Presence of left artificial hip joint; Z87.891 Personal history of nicotine dependence | CPT/HCPCS: 11042; A6402 ==

== ENCOUNTER 2018-05-20 09:30 | Outpatient (CLI) | payer MEDICARE, BC | END 2018-05-20 23:59 | disposition home health service (06) | LOC: WOU 09:30 | PROVIDERS: ATTEND Podiatrist Foot & Ankle Surgery | DX: I87.312 Chronic venous hypertension (idiopathic) with ulcer of left lower extremity (principal); L97.922 Non-pressure chronic ulcer of unspecified part of left lower leg with fat layer exposed; I70.248 Atherosclerosis of native arteries of left leg with ulceration of other part of lower leg; I70.201 Unspecified atherosclerosis of native arteries of extremities, right leg; Z96.642 Presence of left artificial hip joint; Z87.891 Personal history of nicotine dependence | CPT/HCPCS: 11042; A6402 ==

== ENCOUNTER 2018-05-27 08:00 | Outpatient (CLI) | payer MEDICARE, BC | END 2018-05-27 23:59 | disposition home health service (06) | LOC: WOU 08:00 | PROVIDERS: ATTEND Podiatrist Foot & Ankle Surgery | DX: I87.312 Chronic venous hypertension (idiopathic) with ulcer of left lower extremity (principal); L97.822 Non-pressure chronic ulcer of other part of left lower leg with fat layer exposed; I87.2 Venous insufficiency (chronic) (peripheral); Z87.891 Personal history of nicotine dependence; I70.203 Unspecified atherosclerosis of native arteries of extremities, bilateral legs; Z96.642 Presence of left artificial hip joint | CPT/HCPCS: A6402; G0463; Z7610 ==

== ENCOUNTER 2018-06-17 10:05 | Outpatient (CLI) | payer MEDICARE, BC | END 2018-06-17 23:59 | disposition home health service (06) | LOC: WOU 10:05 | PROVIDERS: ATTEND Podiatrist Foot & Ankle Surgery | DX: I87.312 Chronic venous hypertension (idiopathic) with ulcer of left lower extremity (principal); L97.828 Non-pressure chronic ulcer of other part of left lower leg with other specified severity; Z96.642 Presence of left artificial hip joint; Z87.891 Personal history of nicotine dependence; I70.203 Unspecified atherosclerosis of native arteries of extremities, bilateral legs | CPT/HCPCS: A6402; G0463 ==

== ENCOUNTER 2018-06-23 11:00 | Outpatient (CLI) | payer MEDICARE, BC | END 2018-06-23 23:59 | disposition home health service (06) | LOC: WOU 11:00 | PROVIDERS: ATTEND Podiatrist Foot & Ankle Surgery | DX: I70.213 Atherosclerosis of native arteries of extremities with intermittent claudication, bilateral legs (principal); R60.0 Localized edema; I87.2 Venous insufficiency (chronic) (peripheral); Z96.642 Presence of left artificial hip joint; Z87.891 Personal history of nicotine dependence | CPT/HCPCS: G0463 ==